=== PATIENT | male | born 1975 | race Caucasian/White ===

== ENCOUNTER → 2016-10-22 | Outpatient (CLI) | payer OTHER ==
[2016-10-22 17:15] LABS: BASOPHILS % (AUTO) 0 % (0-2); EOSINOPHILS # (AUTO) 0.1 10^3uL; EOSINOPHILS % (AUTO) 2 % (0-4); LYMPHOCYTES # (AUTO) 1.9 X10^3; MEAN CORPUSCULAR VOLUME 88 FL (80-100); MEAN PLATELET VOLUME 8.3 FL (6.0-9.5); MONOCYTES # (AUTO) 0.8 X10^3; MONOCYTES % (AUTO) 11 % (3-11); NEUTROPHILS # (AUTO) 4.5 X10^3; NEUTROPHILS % (AUTO) 61 % (51-67); PLATELET COUNT 238 10^3uL (150-450); WHITE BLOOD COUNT 7.37 10^3uL (4.0-11.0)
[2016-10-22 17:26] LABS: MEAN CORPUSCULAR HEMOGLOBIN 31.5 PG (26.0-34.0); MEAN CORPUSCULAR HGB CONC 35.9 g/dL (31.0-37.0)
[2016-10-22 17:32] LABS: ALBUMIN 5.1 g/dL (3.4-5.0); ANION GAP 19.7 MEQ/L (3-15); TOTAL PROTEIN 8.5 g/dL (6.4-8.5)
== END ==
LOC: LAB 16:52
PROVIDERS: ATTEND Family Medicine
DX: I48.91 Unspecified atrial fibrillation (principal); B18.2 Chronic viral hepatitis C
CPT/HCPCS: 36415; 80053; 80061; 82140; 85025; 85610